=== PATIENT | female | born 1995 | race Caucasian/White ===

== ENCOUNTER → 2023-12-21 | Outpatient (CLI) | payer OTHER | END | disposition home or self-care (01) | LOC: NST 09:15 | PROVIDERS: ATTEND Obstetrics & Gynecology Gynecology | DX: Z34.83 Encounter for supervision of other normal pregnancy, third trimester (principal) ==

== ENCOUNTER 2023-12-27 11:49 | Inpatient (IN) | payer OTHER ==
[~2023-12-27] VITALS: Ht 177.8 cm; Wt 93.4 kg
[2024-01-11 05:11] VITALS: BP 126/75; O2SAT 99
[2024-01-11 06:06] LABS: HEMATOCRIT 34.7 % (36.0-45.00); HEMOGLOBIN 11.4 g/dL (12.0-15.00); MEAN CORPUSCULAR HEMOGLOBIN 25.4 pg (27.00-32.0); PLATELET COUNT 282 K/uL (150-450); RED CELL DISTRIBUTION WIDTH 16.9 % (11.5-14.5)
[2024-01-11] MEDS ORDERED: PRENATAL CAPLE1 EAC1 PO (06:06)
[2024-01-11] MEDS ORDERED: IRON325 MG PO (06:07)
[2024-01-11] MEDS ORDERED: RINGERS SOLUTION,LACTATED 1,000 ML IV SCH (06:15)
[2024-01-11] MEDS ORDERED: OXYTOCIN 500 ML IV ONE (06:15)
[2024-01-11 06:36] LABS: INR < 0.93; PARTIAL THROMBOPLASTIN TIME 29.1 SECONDS (22.0-34.0); PROTHROMBIN TIME 9.6 SECONDS (9.0-11.5)
[2024-01-11 07:18] LABS: ALBUMIN 2.7 gm/dL (3.4-5.0); BILIRUBIN TOTAL 0.37 mg/dL (0.3-1.2); CALCIUM 9.1 mg/dL (8.5-10.1); CREATININE SERUM 0.65 mg/dL (0.55-1.02); GFR 107.76; GLOBULINA 4.2 G/DL (2.4-3.5); POTASSIUM 4.29 mEq/L (3.5-5.1); TOTAL PROTEIN 6.9 gm/dL (6.4-8.2)
[2024-01-11 07:27] VITALS: BP 140/88
[2024-01-11] MEDS ORDERED: MORPHINE SULFATE 4 MG/ML CARTRIDGE IV ONE (08:15)
[2024-01-11 11:10] VITALS: BP 113/67
[2024-01-11] MEDS ORDERED: MEPERIDINE HCL/PF 50 MG/ML VIAL IV ONE (13:55)
[2024-01-11] MEDS ORDERED: PROMETHAZINE HCL 25 MG/ML AMPUL IV ONE (13:55)
[2024-01-11 15:37] VITALS: BP 121/57
[2024-01-11] MEDS ORDERED: CEFAZOLIN SODIUM 1,000 MG VIAL IV SCH (17:00)
[2024-01-11] MEDS ORDERED: CITRIC ACID/SODIUM CITRATE 30 ML BLIST.PACK PO SCH (17:00)
[2024-01-11] MEDS ORDERED: KETOROLAC TROMETHAMINE 30 MG VIAL IV SCH (19:46)
[2024-01-11] MEDS ORDERED: OXYTOCIN 1,000 ML IV ONE (20:00)
[2024-01-11] MEDS ORDERED: ERYTHROMYCIN BASE OPHT 1GM EACH TUBE OP ONE (20:30)
[2024-01-11] MEDS ORDERED: OXYTOCIN 20 UNITS/1000ML RL PIGGYBAG IV ONE (20:30)
[2024-01-11] MEDS ORDERED: MORPHINE SULFATE 4 MG/ML VIAL IV SCH (21:00)
[2024-01-11] MEDS ORDERED: MORPHINE SULFATE 4 MG/ML VIAL IV ONE (22:30)
[2024-01-12 01:22] VITALS: BP 100/60
[2024-01-12] MEDS ORDERED: ACETAMINOPHEN 500 MG GEL..CAP PO SCH (06:00)
[2024-01-12 06:23] VITALS: BP 111/64
[2024-01-12 06:38] LABS: HEMATOCRIT 28.6 % (36.0-45.00); HEMOGLOBIN 9.5 g/dL (12.0-15.00); MEAN CELL VOLUME 75.7 fL (80.00-100.00); MEAN CORPUSCULAR HEMOGLOBIN 25.1 pg (27.00-32.0); MEAN CORPUSCULAR HGB CONC 33.2 g/dl (32.0-36.0); PLATELET COUNT 232 K/uL (150-450); RED BLOOD COUNT 3.77 M/uL (4.00-6.00); RED CELL DISTRIBUTION WIDTH 17.5 % (11.5-14.5)
[2024-01-12 07:02] LABS: ALBUMIN 1.9 gm/dL (3.4-5.0); BILIRUBIN TOTAL 0.42 mg/dL (0.3-1.2); CALCIUM 8.1 mg/dL (8.5-10.1); CREATININE SERUM 0.58 mg/dL (0.55-1.02); GFR 122.91; GLOBULINA 3.2 G/DL (2.4-3.5); POTASSIUM 4.11 mEq/L (3.5-5.1); TOTAL PROTEIN 5.1 gm/dL (6.4-8.2)
[2024-01-12 08:00] VITALS: BP 118/79
[2024-01-12] MEDS ORDERED: DOCUSATE SODIUM 100MG CAP PO SCH (09:00)
[2024-01-12] MEDS ORDERED: GABAPENTIN 300 MG CAPSULE PO SCH (09:00)
[2024-01-12] MEDS ORDERED: SIMETHICONE 125 MG CAPSULE PO SCH (09:00)
[2024-01-12] MEDS ORDERED: PNV,CALCIUM 72/IRON/FOLIC ACID 1 TAB TABLET PO SCH (09:00)
[2024-01-12] MEDS ORDERED: IBUprofen 600 MG TABLET PO SCH (12:00)
[2024-01-12 16:00] VITALS: BP 129/76
[2024-01-13 01:43] VITALS: BP 119/77; O2SAT 100
[2024-01-13 05:57] VITALS: BP 121/78
[2024-01-13 08:00] VITALS: BP 107/63; O2SAT 98
[2024-01-13 16:00] VITALS: BP 107/64
[2024-01-14 01:37] VITALS: BP 132/86; O2SAT 100
[2024-01-14 06:24] VITALS: BP 108/68; O2SAT 100
[2024-01-14 08:37] VITALS: BP 108/72; O2SAT 98
== END 2024-01-14 14:20 | disposition home or self-care (01) | DRG 788 ==
LOC: OB/GYN 01-04 11:25 → LDR 01-11 03:52 → OB/GYN 01-11 21:49
PROVIDERS: ADMIT Obstetrics & Gynecology Gynecology; ATTEND Obstetrics & Gynecology Gynecology
PROC: 4A1HXCZ Monitoring of Products of Conception, Cardiac Rate, External Approach (ICD-10-PCS; 2024-01-11)
PROC: 10D00Z1 Extraction of Products of Conception, Low, Open Approach (ICD-10-PCS; principal; 2024-01-11 17:15)
DX: O82 Encounter for cesarean delivery without indication (principal); O62.1 Secondary uterine inertia; O14.04 Mild to moderate pre-eclampsia, complicating childbirth; Z3A.40 40 weeks gestation of pregnancy; Z37.0 Single live birth; Z20.822 Contact with and (suspected) exposure to COVID-19

== ENCOUNTER → 2023-12-27 | Outpatient (CLI) | payer OTHER | END | disposition home or self-care (01) | LOC: NST 07:57 | PROVIDERS: ATTEND Obstetrics & Gynecology Gynecology | DX: Z34.83 Encounter for supervision of other normal pregnancy, third trimester (principal) ==

== ENCOUNTER 2024-01-01 18:43 | Outpatient (CLI) | payer OTHER ==
[2024-01-01 17:50] VITALS: BP 124/78
[~2024-01-01 18:43] MED LIST: MORPHINE SULFATE 4 MG/ML CARTRIDGE IV NR
[2024-01-01] MEDS ORDERED: RINGERS SOLUTION,LACTATED 1,000 ML IV SCH (19:30)
[2024-01-01 23:38] VITALS: BP 118/67
[2024-01-02 03:09] VITALS: BP 122/77; O2SAT 99
[2024-01-02 07:25] VITALS: BP 92/59
[2024-01-02 09:26] VITALS: BP 92/59
== END 2024-01-02 10:43 | disposition home or self-care (01) ==
LOC: OBS/DEL 18:43
PROVIDERS: ATTEND Obstetrics & Gynecology Gynecology
DX: O36.8130 Decreased fetal movements, third trimester, not applicable or unspecified (principal); Z3A.39 39 weeks gestation of pregnancy